=== PATIENT | male | born 1975 | race African-American/Black ===

== ENCOUNTER 2017-03-25 22:13 | Emergency (ER) | payer OTHER ==
[~2017-03-25] VITALS: Ht 175.3 cm; Wt 76.2 kg
[2017-03-25 22:14] VITALS: BP 149/92
[2017-03-25] MEDS ORDERED: KEFLEX500 MG PO (23:56)
== END 2017-03-26 00:12 | disposition home or self-care (01) ==
LOC: ER 22:13
DX: S81.811A Laceration without foreign body, right lower leg, initial encounter (principal); S01.01XA Laceration without foreign body of scalp, initial encounter; F10.129 Alcohol abuse with intoxication, unspecified; F17.210 Nicotine dependence, cigarettes, uncomplicated; W22.8XXA Striking against or struck by other objects, initial encounter; Y93.89 Activity, other specified; Y92.89 Other specified places as the place of occurrence of the external cause; Y99.8 Other external cause status